=== PATIENT | male | born 1980 | race Asian ===

== ENCOUNTER 2019-08-21 00:39 | Emergency (ER) | payer OTHER ==
[~2019-08-21] VITALS: Ht 180.3 cm; Wt 116.1 kg
[2019-08-21 01:33] LABS: PLATELET COUNT 150 K/uL (142-355)
[2019-08-21 01:39] LABS: POTASSIUM 3.5 mmol/L (3.6-5.2)
[2019-08-21 02:22] VITALS: BP 110/64; TEMP 98.7
== END 2019-08-21 02:28 | disposition home or self-care (01) ==
LOC: ED 00:39
PROVIDERS: Hospitalist
DX: J06.9 Acute upper respiratory infection, unspecified (principal); R50.9 Fever, unspecified; F17.210 Nicotine dependence, cigarettes, uncomplicated
CPT/HCPCS: 36415; 80048; 85027; 87502; 87651; 99283

== ENCOUNTER 2019-09-22 03:21 | Emergency (ER) | payer OTHER ==
[~2019-09-22] VITALS: Ht 180.3 cm; Wt 116.1 kg
[2019-09-22 04:13] LABS: PLATELET COUNT 155 K/uL (142-355)
[2019-09-22 04:22] LABS: SODIUM 141 mmol/L (136-145)
[2019-09-22 04:45] LABS: PARTIAL THROMBOPLASTIN TIME 25.6 SECONDS (24.5-33.6)
[2019-09-22 05:05] VITALS: BP 128/78; TEMP 97.8
== END 2019-09-22 05:06 | disposition home or self-care (01) ==
LOC: ED 03:21
PROVIDERS: Hospitalist
DX: R07.89 Other chest pain (principal); K21.9 Gastro-esophageal reflux disease without esophagitis
CPT/HCPCS: 36415; 80053; 82550; 83880; 84484; 85027; 85379; 85610; 85730; 93005; 99284

== ENCOUNTER 2021-05-22 21:37 | Emergency (ER) | payer OTHER ==
[~2021-05-22] VITALS: Ht 180.3 cm; Wt 116.1 kg
[2021-05-22 22:10] VITALS: BP 148/87; TEMP 98.7
== END 2021-05-22 22:15 | disposition home or self-care (01) ==
LOC: ED 21:37
DX: Z53.21 Procedure and treatment not carried out due to patient leaving prior to being seen by health care provider (principal)
CPT/HCPCS: 99281